=== PATIENT | female | born 2000 | race Hispanic/Latino ===

== ENCOUNTER → 2025-01-02 | Outpatient (REF) | payer OTHER | LOC: US 15:29 | PROVIDERS: ATTEND Internal Medicine | DX: E04.2 Nontoxic multinodular goiter (principal) | CPT/HCPCS: 76536 ==

== ENCOUNTER → 2025-02-16 | Outpatient (REF) | payer OTHER | LOC: US 09:26 | PROVIDERS: ATTEND Internal Medicine | DX: E04.2 Nontoxic multinodular goiter (principal) | CPT/HCPCS: 10005; 88172; 88173; 88305 ==